=== PATIENT | female | born 1975 | race Caucasian/White ===

== ENCOUNTER 2016-05-18 10:48 | Outpatient (CLI) ==
[2015-12-06 10:38] VITALS: BMI 16.6
== END 2016-05-18 10:49 ==
LOC: AMBL 10:48
PROVIDERS: ATTEND Emergency Medicine
DX: R56.9 Unspecified convulsions (principal); R68.89 Other general symptoms and signs

== ENCOUNTER 2017-03-29 09:46 | Outpatient (CLI) ==
[2015-12-06 10:38] VITALS: BMI 16.6
== END 2017-03-29 09:47 | disposition home or self-care (01) ==
LOC: LAB 09:46
PROVIDERS: ATTEND Transplant Surgery
DX: Z00.5 Encounter for examination of potential donor of organ and tissue (principal)
CPT/HCPCS: 36415

== ENCOUNTER 2017-06-05 22:00 | Emergency (ER) ==
[2017-06-05 22:14] VITALS: BP 108/71; TEMP 98.8; BMI 14.9
[2017-06-05] MEDS ORDERED: LACTATED RINGERS 1,000 ML IV STA (22:56)
--- NOTE | 2017-06-05 23:00 | ED.PDOC ---
General ED Provider: Dr. ISAURA GALAN Chief Complaint: Chest Pain Stated Complaint: Patient states that she has lost weight of 9 lbs over two weeks. States she has painful swallowing. Was treated some time back with antibiotics and developed oral candidiasis. Has a 37 pack history of smoking. Time Seen by Physician: 22:58 Mode of Arrival: Walk-In Information Source: Patient Primary Care Provider: SILVESTRE VALVERDE Nursing and Triage Documentation Reviewed and Agree: Yes Reviewed sepsis parameters & appropriate labs ordered?: No System Inflammatory Response Syndrome: Not Applicable Sepsis Protocol: For patient's 13 years and over: Temp is 96.8 and below OR 101 and greater Pulse >90 BPM Resp >20/minute Acutely Altered Mental Status Are patient's symptoms suggestive of a new infection, such as: -Pneumonia -Skin, Soft Tissue -Endocarditis -UTI -Bone, Joint Infection -Implantable Device -Acute Abdominal Infection -Wound Infection -Meningitis -Blood Stream Catheter Infection -Unknown System Inflammatory Response Syndrome: Not Applicable Review of Systems - Review Of Systems Constitutional: Reports: Loss of appetite Ears, Nose, Mouth, Throat: Reports: No symptoms Respiratory: Reports: No symptoms Cardiac: Reports: No symptoms GI: Reports: Difficulty swallowing : Reports: No symptoms Musculoskeletal: Reports: No symptoms Skin: Reports: No symptoms Neurological: Reports: Anxiety All Other Systems: Reviewed and Negative Past Medical History - Past Medical History Previously Healthy: Yes Endocrine: Reports: None Cardiovascular: Reports: Other (Prologed QT interval. ) Respiratory: Reports: None Hematological: Reports: None Gastrointestinal: Reports: None Genitourinary: Reports: None Neuro/Psych: Reports: CVA, Seizure Musculoskeletal: Reports: None Cancer: Reports: None Last Menstrual Period: 2 weeks ago Other Pertinent Past Medical History: cva at 20 years old podt pasrtum one month embolic - Surgical History General Surgical History: Reports: Appendectomy, Unknown - Family History Family History: Reports: Unknown - Social History Smoking Status: Current every day smoker, Heavy tobacco smoker Hx Substance Use: No Alcohol Screening: None - Immunizations Tetanus Shot up to Date: Yes Physical Exam - Physical Exam Appearance: Ill-appearing, Thin Ill-appearing: Mild Pain Distress: Moderate ENT: Erythema (with white patches on the back of the Throat. ) Neck: Supple (No masses or Lymphadenopathy.) Respiratory: Airway patent, Breath sounds clear, Breath sounds equal, Respirations nonlabored Cardiovascular: RRR, Pulses normal, No rub, No murmur GI/: Soft, Nontender, No masses, Bowel sounds normal, No Organomegaly Musculoskeletal: Normal strength, ROM intact, No edema, No calf tenderness Skin: Warm Neurological: Alert, Oriented Psychiatric: Anxious Interpretation - Radiology Interpretation Radiology Interpretation By: Radiologist Radiology Results: Positive Exam Interpreted: CT Scan (Distal Espophageal Mucosal Thickening may represent esophagitis. ) Critical Care Note - Critical Care Note Total Time (mins): 0 Course - Course Hematology/Chemistry: 06/05/17 23:07 06/05/17 23:07 Orders, Labs, Meds: Lab Review 06/05/17 06/05/17 23:07 23:07 WBC 10.91 H RBC 4.43 Hgb 13.4 Hct 39.7 MCV 89.6 MCH 30.2 MCHC 33.8 RDW Coeff of Nico 13.2 Plt Count 272 Immature Gran % (Auto) 0.3 Neut % (Auto) 59.4 Lymph % (Auto) 30.1 Boundary % (Auto) 7.7 Eos % (Auto) 2.0 Baso % (Auto) 0.5 Immature Gran # (Auto) 0.0 Neut # (Auto) 6.5 Lymph # (Auto) 3.3 Boundary # (Auto) 0.8 Eos # (Auto) 0.2 Baso # (Auto) 0.1 Sodium 139 Potassium 3.7 Chloride 103 Carbon Dioxide 27 Anion Gap 12.7 BUN 7 Creatinine 0.66 Estimated GFR (MDRD) 98.00 BUN/Creatinine Ratio 10.60 Glucose 96 Calcium 8.8 Total Bilirubin 0.4 AST 18 ALT 16 Alkaline Phosphatase 83 Total Protein 6.4 Albumin 3.3 L Globulin 3.1 Albumin/Globulin Ratio 1.06 Orders Category Date Time Status NPO REMINDER: IMAGING ONCE CARE 06/05/17 22:57 Active ED IV/MEDIPORT/POWERPORT .ONCE EMERGENCY 06/05/17 22:54 Active CBC W/ AUTO DIFF Stat LAB 06/05/17 23:07 Completed COMPREHENSIVE METABOLIC PANEL Stat LAB 06/05/17 23:07 Completed 0.9 % Sodium Chloride [Saline Flush] MEDS 06/05/17 22:56 Discontinued 1 syr IVF PRN PRN Pantoprazole Sodium [Protonix IV] MEDS 06/06/17 00:17 Discontinued 40 mg IVP ONCE STA Ringers Lactated Solution [Lactated Ringers] 1,000 ml MEDS 06/05/17 22:[address] ABD/PEL WO RENAL STONE PROT Stat RADS 06/05/17 23:[address] CHEST W/O CONTRAST Stat RADS 06/05/17 23:16 Completed Medications Discontinued Medications Generic Name Dose Route Start Last Admin Trade Name Freq PRN Reason Stop Dose Admin Lactated Ringer's 1,000 mls @ 1,000 mls/hr 06/05/17 22:56 06/05/17 23:17 Lactated Ringers IV 06/05/17 23:55 1,000 mls/hr BOLUS STA Administration Pantoprazole Sodium 40 mg 06/06/17 00:17 06/06/17 00:25 Protonix Iv IVP 06/06/17 00:18 40 mg ONCE STA Administration Sodium Chloride 1 syr 06/05/17 22:56 06/06/17 00:29 Saline Flush IVF 1 syr PRN PRN Administration To flush IV Vital Signs: Temp Pulse Resp BP Pulse Ox 06/05/17 22:01 98.8 F 80 20 108/71 94 L Departure - Departure Time of Disposition: 23:17 Disposition: HOME SELF-CARE Discharge Problem: Odynophagia, Esophagitis, Candidiasis of esophagus Dysphagia Qualifiers: Dysphagia type: esophageal phase Qualified Code(s): R13.10 - Dysphagia, unspecified Instructions: Esophagitis (ED) Condition: Good Pt referred to PMD for follow-up: Yes IPMP verified?: No Additional Instructions: Take medications as prescribed. Follow up with PCP in 2-3 days Follow up with PCP for GI referral for Upper endoscopy. Quit smoking. Prescriptions: Nystatin [Nystatin Oral Susp] 5 ml PO ACHS #250 cup Pantoprazole Sodium [Protonix] 40 mg PO BIDAC #60 tablet. Allergies/Adverse Reactions: Allergies Iodinated Contrast- Oral and IV Dye Adverse Reaction (Verified 06/05/17 23:15) steroids Adverse Reaction (Uncoded 06/05/17 22:13) States, "elevates heart rate while taking seizure meds" Home Medications: Ambulatory Orders Lamotrigine [Lamictal] 100 mg PO DIRECTED 10/05/14 Albuterol Sulfate [Proair Hfa] 2 puff IH Q4H PRN #1 puff 10/05/15 Eslicarbazepine Acetate [Aptiom] 400 mg PO DAILY 10/05/15 Acetaminophen [Tylenol] 0.5 tab PO Q4H PRN 06/05/17 Nadolol [Corgard] 10 mg PO BEDTIME 06/05/17 Nystatin [Nystatin Oral Susp] 5 ml PO ACHS #250 cup 06/05/17 Pantoprazole Sodium [Protonix] 40 mg PO BIDAC #60 tablet. 06/06/17 Disposition Discussed With: Patient
--- NOTE | 2017-06-05 23:49 | CT ---
EXAM: CT scan abdomen pelvis without contrast HISTORY: Dysphagia weight loss COMPARISON: None. FINDINGS: Contiguous axial images obtained from lung bases to the symphysis pubis without contrast u tilizing 3-mm collimation. Sagittal and coronal reconstructions were imaged and reviewed.. Emphysem atous changes noted at the lung bases. There is calcified granuloma the right lung base. There is a hiatal hernia with thickening of the distal esophagus. The gallbladder is fluid filled without chol elithiasis. The liver pancreas spleen and adrenal glands have normal unenhanced CT appearance. Athe rosclerotic changes are seen involving the aorta without aneurysm formation. The kidneys are morphol ogically normal. There is mild colonic fecal stasis. There is no evidence of obstruction or free fl uid. Bone windows reveals no evidence of lytic or blastic lesions. IMPRESSION: Small hiatal hernia with thickening distal esophagus. Consider further evaluation with barium swallo w. ASVD without aneurysm. Mild colonic fecal stasis without obstruction or free fluid.
--- NOTE | 2017-06-05 23:51 | CT ---
EXAM: CT chest without intravenous contrast 05/28/2017. Sagittal and coronal reformatted images obt ained HISTORY: Dysphagia and weight loss COMPARISON: 08/29/2012 FINDINGS: The heart size appears within normal limits. There is mucosal thickening of the distal es ophagus as compared to the prior study. This could represent esophagitis. Other etiologies not excl uded. If symptoms persist endoscopy could be considered for further characterization. Persistent pulmonary hyperinflation. There is no focal pulmonary consolidation. Linear opacities in the right mid lobe and lingula most c ompatible with atelectasis. Pneumonia not excluded. There are scattered areas of ground-glass densi ty which may relate to pneumonitis There is no pleural effusion or pneumothorax. Benign postinflammatory calcification within the right lower lobe. IMPRESSION: 1. Mucosal thickening of the distal esophagus. This could represent esophagitis. Other etiologies not excluded. 2. Right middle lobe and lingular atelectasis. Pneumonia less likely. 3. Subtle bilateral areas of ground-glass density which may relate to pneumonitis. 4. Bilateral pulmonary hyperinflation.
[2017-06-06] MEDS ORDERED: PROTONIX IV IVP STA (00:17)
== END 2017-06-06 00:39 | disposition home or self-care (01) ==
LOC: ED 22:00
DX: B37.81 Candidal esophagitis (principal); R13.10 Dysphagia, unspecified; F17.210 Nicotine dependence, cigarettes, uncomplicated; Z86.73 Personal history of transient ischemic attack (TIA), and cerebral infarction without residual deficits
CPT/HCPCS: 36415; 74176; 80053; 85025; 96361; 96374; 99283

== ENCOUNTER 2017-06-11 09:01 | Outpatient (CLI) ==
--- NOTE | 2017-06-11 09:53 | CT ---
EXAM: CT soft tissue neck without contrast HISTORY: Sore throat. COMPARISON: Same day CT chest, abdomen pelvis with prior CT chest 08/29/2012 TECHNIQUE: Serial axial images of the soft tissues of the neck were obtained without contrast. Thes e were viewed in multiple planes. FINDINGS: Limited views of the intracranial contents are normal. Retrobulbar structures and orbital globes are normal. Paranasal sinuses are clear. The mastoid air cells on the right are clear with p ostsurgical changes noted on the left. The parotid and submandibular glands are normal. The nasopha rynx and oropharynx are normal. The epiglottis is normal. Parapharyngeal fat is normal. The tonsils are unremarkable in appearance. The thyroid is heterogeneous. The lungs demonstrate mild emphysema tous disease. There is degenerative disease of the spine. There are few scattered cervical lymph nod es with a posterior left cervical chain lymph node measuring 0.5 cm in short axis. IMPRESSION: 1. No acute abnormality to account for patient's symptoms. There is no abscess or inflammation. 2. Few cervical lymph nodes are likely reactive.
== END 2017-06-11 09:02 | disposition home or self-care (01) ==
LOC: RAD 09:01
PROVIDERS: ATTEND Family Medicine
DX: J02.9 Acute pharyngitis, unspecified (principal)

== ENCOUNTER 2017-07-27 12:11 | Outpatient (CLI) ==
--- NOTE | 2017-07-27 12:51 | US ---
EXAM: Thyroid ultrasound History: Neck pain. Comparison: CT soft tissue neck 06/11/2017 Technique: Multiple sonographic images through the thyroid gland were obtained. Color duplex Dopple r was used to interrogate vascular flow. Findings: The right lobe of the thyroid measures 4.6 cm x 1.0 cm x 1.5 cm. 3 mm benign cystic nodule within th e right thyroid lobe. The thyroid isthmus measures 0.2 cm in thickness. The left lobe of the thyroid measures 4.2 cm x 1.4 cm x 1.5 cm and is without discrete nodule identif ied. No extrathyroidal masses are identified. The thyroid gland is not hypervascular. Impression: Benign 3 mm right thyroid nodule. No additional follow-up is needed.
== END 2017-07-27 12:12 | disposition home or self-care (01) ==
LOC: RAD 12:11
PROVIDERS: ATTEND Family Medicine
DX: R07.0 Pain in throat (principal)

== ENCOUNTER 2017-08-04 08:03 | Outpatient (CLI) ==
--- NOTE | 2017-08-04 15:02 | NM ---
EXAM: Thyroid uptake and scan HISTORY: Weight loss and hair loss. COMPARISON:None of this type. Ultrasound 07/27/2017. CT 06/11/2017. PROCEDURE:The patient was administered 250 microcuries of I-123 in capsule form orally. The patient returned to the department at 4 hours for measurement of thyroid uptake. Additionally anterior and a nterior oblique images of the thyroid gland were obtained. FINDINGS:The 4 hour thyroid uptake is 11.1%. (Normal range 5-12%.). The accompanying images demonstr ate a uniform distribution of activity within normal appearing thyroid lobes. IMPRESSION: 1.Thyroid uptake is 11.1%. 2.The accompanying images demonstrate uniform distribution of activity within normal appearing thyroi d lobes.
== END 2017-08-04 08:04 | disposition home or self-care (01) ==
LOC: RAD 08:03
PROVIDERS: ATTEND Family Medicine
DX: E04.1 Nontoxic single thyroid nodule (principal)

== ENCOUNTER 2018-05-26 09:00 | Outpatient (CLI) ==
--- NOTE | 2018-05-26 11:36 | DI ---
EXAM: CHEST FRONTAL AND LATERAL VIEWS HISTORY: Smoker, under weight. COMPARISON: 10/05/2015 FINDINGS: Heart size and mediastinal contour remain within normal limits. There is diffuse, chron ic appearing interstitial accentuation. Lungs are hyperinflated and there is relative lucency of the lung zones suggesting pulmonary emphysema. No suspicious pulmonary opacities identified within limi ts of radiography. No change since prior study. No acute infiltrates. IMPRESSION: 1. Findings consistent with chronic obstructive pulmonary disease. No noticeable change since prior study
== END 2018-05-26 09:01 | disposition home or self-care (01) ==
LOC: LAB 09:00
PROVIDERS: ATTEND Family Medicine
DX: R63.6 Underweight (principal); R94.31 Abnormal electrocardiogram [ECG] [EKG]; F17.210 Nicotine dependence, cigarettes, uncomplicated
CPT/HCPCS: 36415; 80053; 80061; 83036; 84439; 84443; 84480; 85025

== ENCOUNTER 2018-06-17 18:00 | Outpatient (CLI) | END 2018-06-17 18:20 | disposition short-term general hospital (02) | LOC: AMBL 18:00 | PROVIDERS: ATTEND Family Medicine | DX: T18.128A Food in esophagus causing other injury, initial encounter (principal) ==

== ENCOUNTER 2018-10-04 15:29 | Outpatient (CLI) ==
--- NOTE | 2018-10-04 16:17 | DI ---
EXAM: Two views of the chest. History: Chronic obstructive pulmonary disease exacerbation. Comparison: Chest radiograph 05/26/2018 Findings: Heart size is normal. No focal consolidation. No appreciable pleural fluid and no pneumo thorax. No acute osseous abnormalities. Hyperinflation with increase in retrosternal clear space. Impression: No acute cardiopulmonary process. Chronic obstructive pulmonary disease. No change com pared to prior study
== END 2018-10-04 15:30 | disposition home or self-care (01) ==
LOC: LAB 15:29
PROVIDERS: ATTEND Family Medicine
DX: R94.31 Abnormal electrocardiogram [ECG] [EKG] (principal); J44.1 Chronic obstructive pulmonary disease with (acute) exacerbation
CPT/HCPCS: 36415; 85025; 93005; 93010